=== PATIENT | female | born 1995 | race Caucasian/White ===

== ENCOUNTER → 2022-07-28 13:17 | Outpatient (CLI) | payer OTHER, SELFPAY ==
[2022-07-28 14:04] LABS: Specimen Label NATERA
[2022-07-28 14:04] LABS: Add Manual Diff / Slide Review NO; Basophils Absolute Auto 0 /uL (0-100); Basophils Percent Auto 0.4 % (0-2); Eosinophils Absolute Auto 100 /uL (0-450); Eosinophils Percent Auto 0.8 % (2-4); Hematocrit 38.7 % (36-46); Hemoglobin 13.2 g/dL (12.0-16.0); Lymphocytes Absolute Auto 1100 /uL (1100-4500); Lymphocytes Percent Auto 16.5 % (25-40); Mean Corpuscular HGB Conc 34.1 % (30-36); Mean Corpuscular Hemoglobin 29.8 PG (26-34); Mean Corpuscular Volume 87.4 fL (80-100); Monocytes Absolute Auto 400 /uL (0-900); Monocytes Percent Auto 6.1 % (3-14); Neutrophils Absolute Auto 5000 /uL (1500-7000); Neutrophils Percent Auto 76.2 % (50-75); Platelet Count 249 X10^3/uL (150-400); Red Blood Cell Count 4.43 X10^6/uL (4.0-5.2); Red Cell Distribution Width 12.9 % (11.6-14.8); White Blood Cell Count 6.6 X10^3/uL (4.5-11.0)
[2022-07-28 14:16] LABS: Appearance Urine UA CLEAR; Bilirubin Urine UA NEGATIVE (NEGATIVE); Color Urine UA YELLOW; Glucose Urine UA NEGATIVE (Negative); Ketones Urine UA NEGATIVE (NEGATIVE); Leukocyte Esterase Urine UA NEGATIVE (NEGATIVE); Nitrite Urine UA NEGATIVE (Negative); Occult Blood Urine UA NEGATIVE (Negative); Protein Urine UA NEGATIVE (Negative); Specific Gravity Urine UA <=1.005 (1.000-1.035); Urobilinogen Urine UA 0.2 E.U./dL (0.2)
[2022-07-28 14:17] LABS: pH Urine UA 5.5 (4.5-8.0)
[2022-07-28 16:07] LABS: Hepatitis B Surface Antigen NEGATIVE s/c (NEGATIVE); Rubella Antibody IgG 90.8 IU/mL (>15)
[2022-07-28 16:24] LABS: HIV 1 & 2 Ab/Ag 4th Gen Combo NEGATIVE (NEGATIVE); Hep C Virus Ab w/Reflex Quant NEGATIVE s/c (NEGATIVE)
[2022-07-29 07:23] LABS: RPR Screen Non Reactive (Non Reactive)
[2022-07-29 10:49] LABS: Varicella IgG Antibody 355 index (Immune >165)
== END ==
PROVIDERS: Referring Provider Obstetrics & Gynecology; Visit Provider Obstetrics & Gynecology
DX: Z34.81 Encounter for supervision of other normal pregnancy, first trimester (principal)
CPT/HCPCS: 36415; 80055; 81003; 86787; 86803; 86850; 86900; 86901; 87389

== ENCOUNTER → 2022-09-22 11:01 | Outpatient (CLI) | payer OTHER, SELFPAY | PROVIDERS: PCP Nurse Practitioner Family; Visit Provider Specialist | DX: Z34.82 Encounter for supervision of other normal pregnancy, second trimester (principal); Z3A.18 18 weeks gestation of pregnancy | CPT/HCPCS: 87086 ==

== ENCOUNTER → 2022-09-22 11:19 | Outpatient (CLI) | payer OTHER, SELFPAY ==
[2022-09-26 14:02] LABS: AFP Value 32.6 ng/mL (.); Insulin Dep Diabetes No (.); OSBR Risk 1IN 10000 (.); Results Report (.); Test Results *Screen Negative* (.)
== END ==
PROVIDERS: PCP Nurse Practitioner Family; Referring Provider Specialist; Visit Provider Specialist
DX: Z34.82 Encounter for supervision of other normal pregnancy, second trimester (principal); Z3A.18 18 weeks gestation of pregnancy
CPT/HCPCS: 36415; 82105; 87086

== ENCOUNTER → 2022-10-06 12:48 | Outpatient (CLI) | payer OTHER, SELFPAY ==
--- NOTE | 2022-10-06 12:49 | DI.US.S_ITS ---
PROCEDURE: US OB >= 14 WEEKS FETUS INDICATIONS: ANATOMY SCAN OUTSIDE/PRIOR DATING DATA: Last menstrual period (LMP): 05/19/2022. LMP-based estimated date of delivery (ROMMEL): 02/23/2023. First dating scan (date and location): 07/27/2022 Estimated date of delivery (ROMMEL) from first dating scan: 02/24/2023. The calculations are made using the ultrasound ROMMEL of 02/23/2023. TECHNIQUE: Real-time scanning was performed of the fetus, with image documentation and biometric measurements. Endovaginal scanning: Not performed COMPARISON: [facility], , US OB >= 14 WEEKS FETUS, 07/27/2022, 12:04. FINDINGS: General: A single living intrauterine gestation is present. Presentation: Breech. Placenta: Placental position is posterior , without previa. Lower placental edge 2 cm or less from internal cervical os qualifies as low lying placenta. Amniotic fluid index: 15.6 cm, normal range is 5-24 cm. Single deepest vertical pocket is 5.2 cm. heart rate: 137 beats per minute. Maternal cervical canal: 3.7 cm long. Normal lower limit is 2.5 cm. biometrics: Biparietal diameter: 4.5 cm, 19 weeks 4 days Head circumference: 16.6 cm, 19 weeks 2 days Abdominal circumference: 15.2 cm, 20 weeks 3 days Femur length: 3.2 cm, 19 weeks 6 days Clinically estimated gestational age: 20 weeks Composite gestational age from present scan: 19 weeks 6 days Estimated weight and percentile: 327 g, 46th percentile Anatomic survey: Neuro: Ventricles are non-dilated at less than 10 mm. Cisterna magna is normal at 3-11 mm. Cerebellum is normal in size and morphology. Nuchal skin fold: Normal at less than 6 mm between 14-21 weeks gestational age. Face: Nose and lips, facial profile are normal. Spine: No evidence for spina bifida. Heart: 4-chambered heart is present, with normal ventricular outflow tracts. Diaphragm: Diaphragm is intact. Stomach: Left-sided stomach is present. Kidneys: No hydronephrosis. Normal is less than 5 mm in 2nd trimester, less than 7 mm in 3rd trimester. Cord: 3-vessel cord has orthotopic insertion. Bladder: Normal in size. Extremities: All 4 extremities identified. IMPRESSION: Single living intrauterine at 20 weeks 0 days, ROMMEL of 02/23/2023. Unremarkable anatomy survey. We strive to produce accurate, complete, and clear reports of imaging services. To assist us in improving patient care, this report was composed using standard report templates and voice recognition software. Therefore, it may contain abnormal punctuation, insertions and/or omissions. Occasional wrong-word or sound-alike substitutions may occur. Though we review the report and make efforts to correct it, we do recommend that the report be read carefully in proper context to recognize any text inaccuracies. Dictated by: Gene Alex M.D. on 10/06/2022 at 14:01 Approved by: Gene Alex M.D. on 10/06/2022 at 14:03
== END ==
PROVIDERS: PCP Nurse Practitioner Family; Referring Provider Obstetrics & Gynecology; Visit Provider Obstetrics & Gynecology
DX: Z34.82 Encounter for supervision of other normal pregnancy, second trimester (principal); Z3A.20 20 weeks gestation of pregnancy
CPT/HCPCS: 76811

== ENCOUNTER → 2022-11-23 08:42 | Outpatient (CLI) | payer OTHER, SELFPAY ==
[2022-11-23 10:09] LABS: Hematocrit 36.5 % (36-46); Hemoglobin 12.6 g/dL (12.0-16.0)
[2022-11-23 10:37] LABS: GTT (PREG) 1 Hour PP 50gm Dose 107 mg/dL (76-139)
== END ==
PROVIDERS: PCP Nurse Practitioner Family; Referring Provider Obstetrics & Gynecology; Visit Provider Obstetrics & Gynecology
DX: Z34.82 Encounter for supervision of other normal pregnancy, second trimester (principal); Z3A.26 26 weeks gestation of pregnancy
CPT/HCPCS: 36415; 82950; 85014; 85018

== ENCOUNTER 2023-02-03 15:22 | Outpatient (CLI) | payer OTHER, SELFPAY | END 2023-02-03 16:00 | disposition home or self-care (01) | LOC: OB 02-06 10:40 | PROVIDERS: PCP Nurse Practitioner Family; Referring Provider Obstetrics & Gynecology; Visit Provider Obstetrics & Gynecology | DX: O36.8130 Decreased fetal movements, third trimester, not applicable or unspecified (principal); Z3A.37 37 weeks gestation of pregnancy; Z34.83 Encounter for supervision of other normal pregnancy, third trimester | CPT/HCPCS: 59025; 87653; G0378; G0379 ==

== ENCOUNTER → 2023-02-03 15:28 | Outpatient (CLI) | payer OTHER, SELFPAY ==
[2023-02-04 13:30] LABS: Strep Grp B PCR NEG for Grp B Strep
== END ==
PROVIDERS: PCP Nurse Practitioner Family; Referring Provider Obstetrics & Gynecology; Visit Provider Obstetrics & Gynecology
DX: Z34.83 Encounter for supervision of other normal pregnancy, third trimester (principal); Z3A.37 37 weeks gestation of pregnancy
CPT/HCPCS: 87653

== ENCOUNTER 2023-02-18 13:24 | Inpatient (IN) | payer OTHER, SELFPAY ==
[2023-02-18] MEDS: OXYTOCIN 10 UNIT/ML VIAL (13:51)
--- NOTE | 2023-02-18 14:15 | P.HPOB_ITS ---
OB HPI Date/Time Date of admission: 02/18/23 Date Patient Seen: 02/18/23 History of Present Condition Chief complaint: obs ROMMEL Calculator Estimated Delivery Date Method Current WG Current Estimate 02/23/23 LMP (Certain) 39w 2d Other Estimates 02/24/23 Ultrasound #1 39w 1d Estimated Gestational Age (weeks): 39w2d : 5 Para: 1 Narrative: 27yo at 39w2d here with LOF and contractions. Pt reports feeling fluid leaking approximately 1hr prior to presentation, and then a larger gush 30min later. She started ximena shortly after, now every 2 minutes. She denies any vaginal bleeding. She is feeling her baby move regularly. Her has been uncomplicated. care: good care, initiated at week # (9) and pounds weight gain (34) Dating criteria OB: LMP confirmed by 1st trimester US Ultrasounds: normal 1st trimester US and normal mid trimester US Obstetrical complications: none Medical complications OB: none Preadmission Labs Last OB Lab Results: Blood Type B Positive 07/28/22 13:34 Antibody Screen Negative 07/28/22 13:34 Hematocrit 36.5 % (36-46) 11/23/22 08:46 Hemoglobin 12.6 g/dL (12.0-16.0) 11/23/22 08:46 Hepatitis B Surface Antigen Negative s/c (NEGATIVE) 07/28/22 13 :34 Hepatitis C Antibody Negative s/c (NEGATIVE) 07/28/22 13:34 Rubella Antibody 90.8 IU/mL (>15) 07/28/22 13:34 Varicella-Zoster IgG Antibody 355 index (Immune >165) 07/28/22 13:34 Glucose 1 Hour 107 mg/dL (76-139) 11/23/22 08:46 Group B Streptococcus (PCR) Neg for grp b strep 02/03/23 15:28 -: Chlamydia screen: negative, Gonorrhea screen: negative and Urine: negative Genetic Screens: Cell-free DNA: Normal and Alpha-fetoprotein: Normal External Labs -: Urine: negative Prior (ies) Past Pregnancies Del. Date GA/Weeks Labor Lgth Wt Sex Route Outcome Anesthesia Place Delv Breastfeed Preg Comp Name 07/02/13 10+ molar 05/03/15 10 elective D&C 05/06/21 37.6 5 7 lb 9 oz Male vaginal live - full term [place] 10 months none Ck 03/19/22 5-6 spontaneous Delivery Date: 07/02/13 Last Updated by: Leila De Jesus RN D&C procedure Delivery Date: 03/19/22 Last Updated by: Leila De Jesus RN Passed spontaneously, no complications Evaluation Evaluation Comments: FHT only briefly monitored prior to delivery, in the 130-140s [facility] Medical History (Updated 01/19/23 @ 13:34 by Andria Schmidt MD) Molar SAB (spontaneous ) (~03/2022) Surgical History (Updated 08/12/22 @ 19:51 by Bertha Hall) Anesthesia History of removal of skin mole Leg fracture [place] teeth extracted Family History (Updated 08/12/22 @ 19:53 by Bertha Hall) Mother Diabetes mellitus Hypertension History of heart disease COPD (chronic obstructive pulmonary disease) Kidney failure Liver failure Family/Other Kidney disease Kidney replaced by transplant Father Skin cancer Sister Congenital jaw deformity Family/Other Cleft palate Congenital jaw deformity Social History marital status: number of children: 1 household members: spouse and children lives independently: Yes caregiver/support person: Yes housing: condominium ([employer]) pets and animals: Yes (1 cat, manages litter box) education level: college (some college) occupational status: unemployed current occupational exposures/hazards: No special torsten needs: No travel history: recent (domestic only ([place] and [place])) seatbelt use: always helmet use: No water heater temp set < 120 deg: Yes working smoke detector in home: Yes fire extinguisher in home: Yes carbon monox detector in home: Yes firearms in home: No do you feel safe at home: Yes Smoking Status: Never smoker second hand exposure: No alcohol intake: former (very rarely when not ) substance use type: does not use during the past year weight has: decreased > 10 lbs (currently ~15 lb below pre-baby weight from first ) well-balanced diet: daily or most days daily servings fruits/ve-4 caffeine: Yes (aware of 200mg limit) Type(s) of exercise: walking frequency: 3-4 times per week Meds Home Medications and Allergies Home Medications Medication Instructions Recorded Confirmed Type prenat.vits,neris,kvd-rnia-etpsa 1 tab PO DAILY 07/18/22 02/10/23 History Allergies Allergy/AdvReac Type Severity Reaction Status Date / Time amoxicillin Allergy Unknown Hives Verified 02/10/23 09:23 ibuprofen Allergy Unknown Hives Verified 02/10/23 09:23 OB Exam Narrative Exam Narrative: Gen: NAD, sitting comfortably in bed, appears well CV: RRR, no murmurs Resp: clear to auscultation bilaterally Abd: soft, nontender, gravid Ext: no edema Assessment and Plan Assessment and Plan Assessment and Plan narrative: 27yo at 39w2d here in active labor with SROM. GBS negative, Rh positive. Pt with precipitous delivery immediately after my arrival. See delivery note for details.
--- NOTE | 2023-02-18 14:21 | PM.OBPRVD ---
Labor & Delivery Delivery date: 02/18/23 Intrapartal Events: Precipitous Labor < 3 hours Cervical ripening method: none Induction method: none Delivery monitor: external FHT Route of delivery: Episiotomy description: None L&D Laceration Description: None Quantitative Blood Loss: 50 Anesthesia Type: None Complications: None Narrative: PROCEDURE: at 39w2d presented in active labor with SROM and was admitted to Labor and Delivery. The patient progressed through the 1st stage over 2 hours. ROM occured at 11:30 with clear fluid. Pain was controlled with natural methods. The patient progressed through the 2nd stage over 7 minutes and delivered a viable female with APGARs 8/9 at 13:42 via without complications. The cord was cut and clamped after it stopped pulsating. The placenta delivered with gentle cord traction, and appeared complete. The perineum and vagina were inspected with no lacerations. Needle and sponge counts were correct.? The vagina was inspected and no items were left in situ. Jyothi was doing well with Akiko, her and her at bedside. PREPROCEDURE DIAGNOSIS: Intrauterine at 39w2d GBS negative RH positive POSTPROCEDURE DIAGNOSIS: Intrauterine at 39w2d, delivered Same as preprocedure Baby 1: gender: Female Presentation: vertex Position: Left Occiput Anterior Placenta delivery description: Spontaneous Cord Vessel Description: 3 Vessels score (1 min): 8 score (5 min): 9 weight: 6 lb 13.984 oz Plan for aftercare: Routine care
[2023-02-18 16:26] VITALS: BP 120/64
[2023-02-18] MEDS: ACETAMINOPHEN 325 MG TABLET 650 MG PO (18:57)
[2023-02-19 07:26] LABS: Add Manual Diff / Slide Review NO; Basophils Absolute Auto 0 /uL (0-100); Basophils Percent Auto 0.4 % (0-2); Eosinophils Absolute Auto 100 /uL (0-450); Eosinophils Percent Auto 0.9 % (2-4); Hematocrit 37.1 % (36-46); Hemoglobin 12.8 g/dL (12.0-16.0); Lymphocytes Absolute Auto 1500 /uL (1100-4500); Lymphocytes Percent Auto 16.1 % (25-40); Mean Corpuscular HGB Conc 34.5 % (30-36); Mean Corpuscular Hemoglobin 30.1 PG (26-34); Monocytes Absolute Auto 600 /uL (0-900); Monocytes Percent Auto 6.3 % (3-14); Neutrophils Absolute Auto 6900 /uL (1500-7000); Neutrophils Percent Auto 76.3 % (50-75); Platelet Count 214 X10^3/uL (150-400); Red Blood Cell Count 4.26 X10^6/uL (4.0-5.2); Red Cell Distribution Width 13.8 % (11.6-14.8)
[2023-02-19] MEDS: PRENATAL VIT,CALC/IRON/FOLIC 1 TABLET 1 TAB PO (10:28)
--- NOTE | 2023-02-19 10:51 | P.DS_ITS ---
Discharge Providers Provider Date of admission: 02/18/23 13:24 Discharge Date: 02/19/23 Primary care physician: ADAM Ames Consults: 02/19/23 14:10 Consult to Histologic Aide Routine Comment: Discharge provider: Jyoti Richardson MD Summary Hospital Course Date Patient Seen: 02/19/23 Diagnoses: Intrauterine at 39w2d GBS negative RH positive Hospital Course: The pt presented in active labor and had a precipitous delivery of a viable baby girl without complications on 02/18/23. She had SROM at home prior to presentation with clear fluid. There were no lacerations. , there were no complications. At the time of discharge she was voiding, ambulating, and passing flatus without difficulty. Her lochia was decreasing appropriately. Her pain was well controlled. She was with good latch. She will f/u in 6 weeks for check. Her plans on vasectomy for contraception. Peripartum Data Delivery Method: Natural Vaginal Laceration Description: None Episiotomy description: None Procedures: Spontaneous vaginal delivery complications: none [place] 1: Gender: Female Disposition of : home Discharge Diagnosis (1) (spontaneous vaginal delivery): Status: Acute Status at Discharge Cognitive/behavioral status at discharge: oriented Functional status at discharge: independent ambulation Overall status at discharge: patient is progressing back to baseline Time Spent with Patient Time attestation: Total time spent providing and/or coordinating discharge services: Objective Labs 02/19/23 07:05 Labs: Laboratory Results - last 24 hr 02/19/23 07:05 WBC 9.0 RBC 4.26 Hgb 12.8 Hct 37.1 MCV 87.0 MCH 30.1 MCHC 34.5 RDW 13.8 Plt Count 214 Neut % (Auto) 76.3 H Lymph % (Auto) 16.1 L [place] % (Auto) 6.3 Eos % (Auto) 0.9 L Baso % (Auto) 0.4 Neut # (Auto) 6900 Lymph # (Auto) 1500 [place] # (Auto) 600 Eos # (Auto) 100 Baso # (Auto) 0 Exam Narrative Exam Narrative: Gen: NAD, sitting comfortably in bed, appears well CV: RRR, no murmurs Resp: clear to auscultation bilaterally Abd: soft, appropriately tender, fundus firm and below the umbilicus, nondis tended Ext: no edema Discharge Plan Discharge Plan Patient Disposition: Home Discharge orders & Medications Prescriptions: New acetaminophen 325 mg Tablet 650 mg PO Q6HR PRN (Reason: Pain, Mild (1-3)) Qty: 30 0RF Continued prenat.vits,neris,nzc-iaco-xpazj Tablet 1 tab PO DAILY Follow up/Referrals: Haydee Hazel MD [Physician] - 6 Weeks Michelle Berumen ARNP [Primary Care Provider] - Diet/Activity/Treatments Diet: Diet as Tolerated and Regular Skin/Wound/Dressing Care Report to your healthcare provider any signs of infection, such as:: chills, fever, increased pain and unusual drainage Visit Report/Discharge Packet Instructions: DI for Labor and Delivery, Vaginal Stand Alone Forms: Patient Portal/API, Stroke Signs & Symptoms Discharge Data Primary Care Provider: Michelle Berumen
== END 2023-02-19 12:50 | disposition home or self-care (01) | DRG 807 ==
PROVIDERS: Family Medicine; Admitting Provider Obstetrics & Gynecology; PCP Nurse Practitioner Family; Referring Provider Obstetrics & Gynecology; Visit Provider Obstetrics & Gynecology
DX: O62.3 Precipitate labor (principal); Z37.0 Single live birth; Z3A.39 39 weeks gestation of pregnancy
CPT/HCPCS: 36415; 59050; 59400; 59409; 85025; G0379; J2590